=== PATIENT | female | born 1980 | race African-American/Black ===

== ENCOUNTER 2016-12-16 20:38 | Emergency (ER) | payer OTHER ==
[~2016-12-16] VITALS: Ht 154.9 cm; Wt 90.7 kg
[~2016-12-16 20:38] MED LIST: CLEOCIN HCL300 MG PO; FLEXERIL PO; IBUPROFEN 600600 M1 PO; NAPROSYN500 MG PO; NOHOMEMEDICATIONS; NORCO 5-325 TA1 EACH PO; PERCOCET 5-3251 EACH PO; PRED-FORTE OPHTH1 M1 OP; SENNA-S TABLET1 EACH PO; VALIUM2 MG PO; birth control
[2016-12-16] MEDS ORDERED: PROMS25 WY RECTAL (21:49)
[2016-12-16] MEDS ORDERED: BUTALB-APAP-CA1 EACH PO (21:49)
== END 2016-12-16 22:46 | disposition home or self-care (01) ==
LOC: ER 20:38
DX: G43.909 Migraine, unspecified, not intractable, without status migrainosus (principal); D57.3 Sickle-cell trait; Z98.890 Other specified postprocedural states; Z90.49 Acquired absence of other specified parts of digestive tract; Z88.1 Allergy status to other antibiotic agents

== ENCOUNTER 2017-07-11 22:16 | Emergency (ER) | payer OTHER ==
[~2017-07-11] VITALS: Ht 154.9 cm; Wt 95.3 kg
--- NOTE | ~2017-07-11 | EKG ---
[place] [address] [facility] [place] [address] ELECTROCARDIOGRAM REPORT Name: LELE MICHAUD Room #: DEP Aaron#: [id number] Admission: 07/11/17 Attend Phys: Discharge: 07/12/17 Date of : 82 Report #: [id number] THIS REPORT FOR: //name// [facility] ED Test Date: 2017-07-11 Test Time: 22:21:55 Pat Name: LELE MICHAUD Department: Room: Gender: F Rn Medicare: [employer]ZOOK : 1980 Requested By: Aaron Mtz Order Number: [id number] MD: Esa Holt Measurements Intervals [place] Rate: 115 P: 20 [place]: 127 QRS: 19 QRSD: 95 T: -23 QT: 310 QTc: 429 Interpretive Statements Sinus tachycardia Borderline T abnormalities, inferior leads Poor R wave progression Compared to ECG 06/29/2015 00:32:02 ST and T wave abnormality is now present Electronically Signed On 07-12-2017 8:22:57 CDT by Esa Holt [email or web address] <ELECTRONICALLY SIGNED> By: Esa Holt MD, [facility] 07/12/1722 20 20 Esa Holt MD, FAC /EPI
[~2017-07-11 22:16] MED LIST changes: +BUTALB-APAP-CA1 EACH PO; +PROMS25 WY RECTAL
[2017-07-11] MEDS ORDERED: NORFLEX100 MG PO (23:57)
[2017-07-11] MEDS ORDERED: NAPROSYN500 MG PO (23:57)
[2017-07-12 00:42] VITALS: BP 125/89
== END 2017-07-12 00:42 | disposition home or self-care (01) ==
LOC: ER 22:16
DX: M43.6 Torticollis (principal); R00.0 Tachycardia, unspecified; D57.3 Sickle-cell trait; Z98.890 Other specified postprocedural states; Z90.49 Acquired absence of other specified parts of digestive tract; Z88.1 Allergy status to other antibiotic agents

== ENCOUNTER 2017-11-19 18:58 | Emergency (ER) | payer OTHER ==
[~2017-11-19] VITALS: Ht 154.9 cm; Wt 90.7 kg
[~2017-11-19 18:58] MED LIST changes: +NORFLEX100 MG PO
[2017-11-19] MEDS ORDERED: REGLAN 10 MG TA10 MG PO (20:34)
== END 2017-11-19 20:43 | disposition home or self-care (01) ==
LOC: ER 18:58
DX: R51 Headache (principal); D57.3 Sickle-cell trait; Z90.49 Acquired absence of other specified parts of digestive tract; Z98.890 Other specified postprocedural states; Z88.1 Allergy status to other antibiotic agents

== ENCOUNTER 2018-04-09 13:23 | Emergency (ER) | payer OTHER ==
[~2018-04-09] VITALS: Ht 154.9 cm; Wt 90.7 kg
[~2018-04-09 13:23] MED LIST changes: +REGLAN 10 MG TA10 MG PO
[2018-04-09] MEDS ORDERED: TRAMADOL 50 MG50 MG PO (14:29)
[2018-04-09 15:11] VITALS: BP 164/84
== END 2018-04-09 15:11 | disposition home or self-care (01) ==
LOC: ER 13:23
DX: S62.650A Nondisplaced fracture of middle phalanx of right index finger, initial encounter for closed fracture (principal); Z88.1 Allergy status to other antibiotic agents; W23.0XXA Caught, crushed, jammed, or pinched between moving objects, initial encounter; Y93.89 Activity, other specified; Y92.89 Other specified places as the place of occurrence of the external cause; Y99.8 Other external cause status

== ENCOUNTER 2018-09-21 19:51 | Emergency (ER) | payer OTHER ==
[~2018-09-21] VITALS: Ht 154.9 cm; Wt 90.7 kg
[~2018-09-21 19:51] MED LIST changes: +TRAMADOL 50 MG50 MG PO
[2018-09-21] MEDS ORDERED: NAPROSYN500 MG PO (21:30)
[2018-09-21] MEDS ORDERED: PROMS25 WY RECTAL (21:30)
[2018-09-21] MEDS ORDERED: TRAMADOL 50 MG50 MG PO (21:30)
[2018-09-21 22:21] VITALS: BP 128/67
== END 2018-09-21 22:21 | disposition home or self-care (01) ==
LOC: ER 19:51
DX: G43.909 Migraine, unspecified, not intractable, without status migrainosus (principal); Z88.1 Allergy status to other antibiotic agents; Z90.49 Acquired absence of other specified parts of digestive tract; Z98.890 Other specified postprocedural states

== ENCOUNTER 2019-06-07 13:28 | Emergency (ER) | payer OTHER ==
[~2019-06-07] VITALS: Ht 154.9 cm; Wt 104.3 kg
[2019-06-07] MEDS ORDERED: DOXYCYCLINE 10100 MG PO (14:00)
[2019-06-07] MEDS ORDERED: FLONASE 0.05%50 MCG NARES (14:00)
[2019-06-07 14:27] VITALS: BP 152/94
== END 2019-06-07 14:27 | disposition home or self-care (01) ==
LOC: ER 13:28
DX: J01.80 Other acute sinusitis (principal); B96.89 Other specified bacterial agents as the cause of diseases classified elsewhere; D57.3 Sickle-cell trait; Z98.890 Other specified postprocedural states; Z98.51 Tubal ligation status; Z90.49 Acquired absence of other specified parts of digestive tract; Z88.1 Allergy status to other antibiotic agents